=== PATIENT | male | born 1985 | race Caucasian/White ===

== ENCOUNTER 2018-09-27 19:45 | Emergency (ER) | payer OTHER, SELFPAY ==
[~2018-09-27] VITALS: Ht 175.3 cm; Wt 118.8 kg
[2018-09-27 19:45] VITALS: BP 132/82
--- NOTE | 2018-09-28 07:50 | REP ---
Left tibia-fibula four views : There is no fracture or dislocation. Mineralization and joint spaces are normal. There are no calcifications or foreign bodies. Impression: Negative Left tibia-fibula . Electronically Signed by Aries Garcia MD 09/28/2018 07:43 A
== END 2018-09-27 22:32 | disposition left against medical advice (07) ==
LOC: M ED 19:45
DX: Z53.21 Procedure and treatment not carried out due to patient leaving prior to being seen by health care provider (principal)